=== PATIENT | male | born 1985 | race Caucasian/White ===

== ENCOUNTER 2023-06-29 13:02 | Emergency (ER) | payer OTHER, SELFPAY ==
[2023-06-29 13:21] VITALS: BP 133/81; PULSE 85; RESP 18; TEMP 36.8; O2SAT 98
--- NOTE | 2023-06-29 13:22 | ED.MALEGU ---
HPI - Male Genitourinary General Chief complaint: Urogenital-Male Stated complaint: uti symptoms Source: patient and RN notes reviewed Mode of arrival: ambulatory Limitations: no limitations History of Present Illness HPI Narrative: 38 y/o male presented for c/o urinary frequency with a dull constant testicular and penile pain since yesterday. States both testicles feel tender, rating pain 4/10. Denies redness or swelling to the testes/scrotum. Endorses mild burning with urination. Denies hematuria, urethral drainage, flank pain, dysejaculation, hematospermia, n/v/d/f/c. Denies recent trauma. Denies concern for STD. States he had a UTI about 12 years ago. Related Data Home Medications Medication Instructions Recorded Confirmed venlafaxine 75 mg capsule,extended 75 mg PO DAILY 06/29/23 06/29/23 release 24 hr Allergies Allergy/AdvReac Type Severity Reaction Status Date / Time No Known Allergies Allergy Verified 06/29/23 13:26 Review of Systems Review of Systems: CONSTITUTIONAL: Denies body aches, fever, chills, or sweats. CARDIOVASCULAR: Denies chest pain, palpitations, or edema. RESPIRATORY: Denies cough or dyspnea. GASTROINTESTINAL: Denies abdominal pain, nausea, vomiting, or diarrhea. GENITOURINARY: Reports dysuria, frequency, denies urgency, hematuria, flank pain SKIN: Denies rash, itching, or wounds. MUSCULOSKELETAL: Denies back pain or myalgia. PMFSH Comments At time of signature, I have reviewed and agree with nursing past medical, surgical, social and family history unless otherwise noted. Please see nursing chart for further information. There is no relevant family history pertinent to the presenting complaint Exam Narrative: GENERAL: Well-appearing and in no acute distress. HEAD: Normocephalic EYES: EOMI. . ENT: Mucous membranes pink and moist. NECK: Normal AROM. Supple. CHEST: Clear to auscultation. HEART: Regular rate and rhythm. ABDOMEN: Soft, nontender, nondistended, normal active bowel sounds. No CVA tenderness : No scrotal/ testicular swelling or erythema, mild tenderness posteriorly bilateral testes. No rashes/lesions; no urethral drainage. Chaperoned by Leslee VASQUEZ. SKIN: Warm, dry, no rash. NEURO: No focal deficits. Alert and oriented x3. Gait steady. PSYCH: Normal affect. Course Course Emergency Course: Patient is aware of diagnosis, understands and agrees to treatment plan. Anticipatory guidance given. Patient agrees to follow-up as directed and is aware of reasons to seek care at the emergency department. Portions of this record may have been created with voice recognition software Level of Care: Express Care Visit Vital Signs Vital signs: Reviewed MDM - Male Genitourinary MDM Narrative Medical decision making narrative: Patient presenting with c/o urinary frequency with bilateral testicular tenderness, without concern for STD. Urine dip negative, will send for culture. Urine specimen collected for GC, chlamydia, trich. Informed Pt will be contacted w/ results when they become available. Discussed with patient that it takes up to 7 days for results of cultures to be released and explained that we may treat empirically at this time. Declines treatment at this time and will return should tests be positive. We discussed at length possible etiologies of symptoms, including concern for surgical emergency. Based on physical exam, does not appear typical of testicular torsion. Will treat for possible epididymitis at this time, I have instructed the patient to go to the ER immediately for new or worsening symptoms. The patient expressed understanding of and agreement with this plan. Differential Diagnosis Differential diagnosis: Likely urinary tract infection, urethritis, epididymitis, prostatitis and other (hydrocele, hernia, orchitis, spermatocele, torsion, tumor, varicocele) Discharge Plan Discharge Clinical Impression: Dysuria Patient Disposition: Ho
== END 2023-06-29 13:55 | disposition home or self-care (01) ==
PROVIDERS: Emergency Provider Nurse Practitioner Family
DX: R30.0 Dysuria (principal)
CPT/HCPCS: 81003; 87086; 87491; 87591; 87661; 99203; G0463